=== PATIENT | male | born 1950 | race Caucasian/White ===

== ENCOUNTER 2021-03-04 08:07 | Day surgery (SDC) | payer OTHER, SELFPAY ==
[2021-03-04 08:28] VITALS: BP 138/94; PULSE 93; RESP 18; TEMP 36.6; O2SAT 98
[2021-03-04] MEDS: Tropicam./Phenyleph. (1/2.5%) 5 ML BTL OD ×3 (08:37→08:49)
--- NOTE | 2021-03-04 08:59 | W.ANESPRE ---
General Info Date of Service Date Performed: 03/04/21 Height: 5 ft 10.5 in Weight: 102.3 kg Body Mass Index (BMI): 31.8 Surgical Procedure: Operation Date: 03/04/21 10:40 Proposed Procedures Side Surgeon p Cataract Extraction with IOL Implant Right Matthew Garland MD Meds Allergies and Home Medications Allergies Allergy/AdvReac Type Severity Reaction Status Date / Time morphine Allergy Mild Itching Unverified 03/04/21 08:37 Home Medication Medication Instructions Recorded acetaminophen 325 mg PO Q6H PRN 02/28/21 allopurinol 300 mg PO DAILY 02/28/21 cholecalciferol (vitamin D3) 25 mcg PO DAILY 02/28/21 [Vitamin D3] diltiazem HCl [Diltia XT] 240 mg PO DAILY 02/28/21 furosemide 40 mg PO DAILY 02/28/21 gemfibrozil 600 mg PO BID 02/28/21 losartan 50 mg PO DAILY 02/28/21 triamcinolone acetonide [Kenalog] 1 applic TOPICAL TID 02/28/21 Current Visit Medications: Current Medications Generic Name Dose Route Start Last Admin Trade Name Freq PRN Reason Stop Dose Admin Acetaminophen 1,000 mg 03/04/21 06:00 Acetaminophen 500 Mg Tab PO Q4H PRN PRN Miscellaneous Medication 0 ml 03/04/21 06:00 Prednisolone 1%, Moxifloxacin 0.5%, Nepafenac 0.1% 5ml Btl OD DIRECTED HELGA Miscellaneous Medication 0 ml 03/04/21 06:00 03/04/21 08:49 Tropicam./Phenyleph. (1/2.5%) 5 Ml Btl OD 1 drp DIRECTED HELGA Administration Tetracaine HCl 0 ml 03/04/21 06:00 Tetracaine 0.5% 4 Ml Btl OD DIRECTED HEGLA PFSH Medical History Medical History A-fib Arthritis Basal cell carcinoma Degenerative joint disease of knee, right Diverticulosis Gout HTN (hypertension) Hx of ptosis of eyelid Hypertriglyceridemia Umbilical hernia Surgical History Surgical History H/O colectomy History of eyelid surgery History of hip surgery History of vasectomy Hx of appendectomy Hx of colonoscopy Hx of inguinal hernia repair Hx of total knee replacement Tobacco Smoking/Tobacco Use Status: Former Tobacco Use Alcohol Alcohol Intake: current Alcohol intake frequency: 0-2 drinks per day Substance Use Substance use: Never Substance use type: does not use Vital Signs and Lab Results Vital Signs Most Recent Vital Signs in EMR: Most Recent Vital Signs Temp Pulse Resp BP Pulse Ox 36.6 C 93 H 18 138/94 H 98 03/04/21 08:28 03/04/21 08:28 03/04/21 08:28 03/04/21 08:28 03/04/21 08:28 Lab Results Blood Type / Crossmatch: No Data to Display Complete Blood Count: No Data to Display Complete Metabolic Panel: No Data to Display Liver Function Panel: No Data to Display Coagulation Panel: No Data to Display Cardiac Panel: No Data to Display Arterial Blood Gas: No Data to Display Venous Blood Gas: No Data to Display Pancreas Panel: No Data to Display Thyroid Panel: No Data to Display Infectious Disease: No Data to Display Blood Cultures: No Data to Display Toxicology Panel: No Data to Display Anesthesia Assessment and Plan Anesthesia History Personal History: No History of Anesthesia Complications Family History: No Family History of Anesthesia Complications Exercise Tolerance Exercise Tolerance: Metabolic Equivalents>4 Cardiac & Pulmonary Exam Cardiac Exam: Normal S1/S2 Heart Sounds Pulmonary Exam: Clear Bilateral Breath Sounds Airway Exam Known Difficult Airway: No Mallampati Class: 2 Mouth Opening: Normal (> 3cm) Thyromental Distance: Greater than 3 cm Neck Range of Motion: Full ROM Neck Circumference: Thick Teeth Condition: Normal Dentition ASA Classification ASA Score: ASA 2 Emergency Case?: No NPO Status NPO Status: NPO Clears >2 hours, Solids >8 hours Anesthesia Plan Resuscitation Status: Full Code Anesthesia Technique: MAC Anesthesia Airway Planned: Natural Airway Monitors Used: Standard Monitors Preoperative Comments:: 70 yo for cataract removal. sig PMhx of afib (dilt and abixaban, previous failed cardioversion), hypertension (losartan/furosemide). discussed mko vs no MKO, would like no MKO.
[2021-03-04 09:02] VITALS: BMI 31.8
[2021-03-04] MEDS: Povidone-Iodine Ophth 30 ML BTL (09:53)
[2021-03-04] MEDS: Lidocaine 2% Jelly 6 ML SYR (09:55)
[2021-03-04] MEDS: Lidocaine 1% Pres-Free 5 ML VIAL (09:55)
[2021-03-04] MEDS: Balanced Salt Soln.-PLUS 500 ML BAG (09:56)
[2021-03-04] MEDS: Duovisc Viscoelastic System EACH 1 EACH (09:56)
[2021-03-04] MEDS: Tetracaine 0.5% 4 ML BTL OD (09:56)
[2021-03-04 10:15] VITALS: BP 141/90; PULSE 91; RESP 18; TEMP 36.6; O2SAT 97
--- NOTE | 2021-03-04 10:23 | W.PM.DSUDISC ---
Discharge Plan Disposition Patient Disposition: HOME Condition: Good Discharge Details Attending Provider: Matthew Garland Primary Care Provider: Gerardo Villanueva Home Meds and New Rx's Prescriptions: No Action losartan 50 mg Tablet 50 mg PO DAILY RF: 0 furosemide 40 mg Tablet 40 mg PO DAILY RF: 0 acetaminophen 325 mg Tablet 325 mg PO Q6H PRNRF: 0 diltiazem HCl [Diltia XT] 240 mg Capsule,Ext.Rel 24h Degradable 240 mg PO DAILY RF: 0 gemfibrozil 600 mg Tablet 600 mg PO BID RF: 0 allopurinol 300 mg Tablet 300 mg PO DAILY RF: 0 triamcinolone acetonide [Kenalog] 0.1 % Lotion 1 applic TOPICAL TID RF: 0 cholecalciferol (vitamin D3) [Vitamin D3] 25 mcg (1,000 unit) Tablet 25 mcg PO DAILY RF: 0 Discharge Instructions Stand Alone Forms: Post-op Block Cataract, Post-op Topical Cataract, Press Ganey (DSU) Discharge Orders Discharge Orders: Discharge Order (Routine); Ordered 03/04/21 Ordered By: Matthew Garland DS: Diagnosis Discharge Diagnosis (1) Nuclear sclerotic cataract of right eye: Status: Resolved (2) Posterior subcapsular age-related cataract, right eye: Status: Resolved
--- NOTE | 2021-03-04 10:24 | ROE_ITS ---
Date of service: 03/04/21 Time of Service: 10:25 Operative Note Operative Note DATE OF PROCEDURE: 03/04/21 PRE-OP DIAGNOSIS: Nuclear/posterior subcapsular cataract, right eye POST-OP DIAGNOSIS: same PROCEDURE: Cataract extraction using phacoemulsification with intraocular lens implant, right eye SURGEON: Matthew Garland ANESTHESIA TYPE: Local By Surgeon and MAC Refer to Anesthesia Record ESTIMATED BLOOD LOSS: 0 PATHOLOGY: none sent COMPLICATIONS: None Patient was transported to: same day Patient's condition: stable Implants: Carlos and Carlos Vision / [employer] Tecnis [id number] intraocular lens Indications: Progressive decreased vision due to cataract, right eye Procedure Description: CATARACT SURGERY OPERATIVE REPORT PREOPERATIVE DIAGNOSIS: Nuclear/posterior subcapsular cataract, right eye POSTOPERATIVE DIAGNOSIS: Same OPERATION: Cataract extraction using phacoemulsification with posterior chamber intraocular lens implant, right eye. IOL: IOL Heating Fixture Tender/Model: [employer] / TERI Tecnis [id number] IOL Power: + 20.5 diopters IOL Serial Number: [id number] Optic Diameter: 6.0mm Haptic/Overall Diameter: 13.0mm PHACO INFO: Kaleb [employer] Vision System with OZil and Active Fluidics Cumulative Dispersed Energy (CDE): 12.99 seconds SURGEON: Matthew Garland MD, DEDRA ANESTHESIA: Monitored Anesthesia Care (MAC), with local sub-tenon's anesthetic infiltration COMPLICATIONS: None SPECIMENS: None INDICATIONS FOR PROCEDURE: The patient is a 70-year-old gentleman with history of diminished visual acuity in his right eye secondary to the development of nuclear and posterior subcapsular cataract. He was significantly symptomatic that he desired cataract surgery and attempt to improve and maximize his vision. PROCEDURE: The correct surgical eye was identified and marked as the right eye and the pupil was dilated in the preoperative area using mydriatics and cycloplegics. The dilated pupil size was 7.0 mm. He elected to proceed without oral sedation. The patient was brought to the operating room where cardiopulmonary monitoring was instituted and surgical time-out was performed, confirming the correct operative eye and IOL power. Topical anesthesia was administered and ophthalmic povidone-iodine 5% was instilled into the conjunctival fornices. Lidocaine gel was applied to the cornea and the tarik-ocular area was prepped with Betadine 10% solution and draped in the usual sterile fashion for intraocular surgery, including an aperture drape. A Tegaderm transparent film dressing was cut in half and used to cover the lashes and lid margins. Care was taken to sequester the lashes and lid margins under the Tegaderm dressing. A lid speculum was placed between the lids of the operative eye and the Rebecca-Pawel operating microscope was maneuvered into position. Javid scissors were then used to make a conjunctival buttonhole approximately 6mm posterior to the limbus in the inferonasal quadrant. Blunt dissection was carried out to expose bare sclera, and a blunt-tipped sub-tenon?s anesthesia cannula was introduced and passed posteriorly along the globe where non- preserved plain lidocaine was injected into posterior sub-Tenon?s space. A sideport knife was used to make a paracentesis port inferiortemporally. Intraocular phenylephrine/lidocaine was injected into the anterior chamber. The anterior chamber was then filled with viscoelastic. A 2.4mm keratome knife was used to create a half-thickness groove at the limbus and then to construct a three-plane near-clear corneal tunnel extending 2.0mm into clear cornea in the superiortemporal position. . A flap was raised on the anterior capsule and capsulorhexis forceps were used to complete a continuous curvilinear capsulorhexis of 5.0 mm. Balanced salt solution was then used to perform cortical cleaving hydrodissection and nuclear hydrodelineation until the lens could be freely rotated within the capsular bag. The lens nucleus was then disassembled and removed within the capsular bag and iris plane using phacoemulsification. Residual cortical material was removed using the I/A handpiece. The posterior capsule was carefully polished to remove as much residual lens epithelial cells as safely possible. The capsular bag was then inflated and the anterior chamber deepened with viscoelastic. The lens implant described above was inserted into the capsular bag using the TERI [place] Injector. A Kuglen hook was used to dial the IOL into position. Residual viscoelastic was then removed first from posterior to the IOL, then from the anterior chamber using the I/A handpiece. The lens implant was noted to center nicely within the capsular bag. The incisions were stromally hydrated, and the anterior chamber was reformed using BSS. Then 0.5cc of moxifloxacin 1.0mg/ml were injected into the capsular bag and anterior chamber. The incisions were checked with a Weck spear and found to be secure. Several drops of ophthalmic povidone-iodine 5% were then applied to the eye followed by two drops of Imprimis combination prednisolone/moxifloxacin/nepafenac solution. The drapes were removed and a clear plastic protective eye shield was placed over the eye. The patient was then returned to Same Day Surgery in stable condition.
--- NOTE | 2021-03-04 12:03 | W.ANESPOSTOP ---
Postoperative Evaluation Date, Time and Location Date Performed: 03/04/21 Time Performed: 12:03 Patient Location: Day Surgery Unit Vital Signs Most Recent Imported Vital Signs: Most Recent Vital Signs Temp Pulse Resp BP Pulse Ox 36.6 C 91 H 18 141/90 H 97 03/04/21 10:15 03/04/21 10:15 03/04/21 10:15 03/04/21 10:15 03/04/21 10:15 Pain Score Most Recent Pain Score: Most Recent Pain Score Pain Level 0 03/04/21 10:15 Assessment Mental Status: Awake (Alert & Oriented to Patient Baseline) Airway and Respiratory Function: Patent airway with normal (patient baseline) respiratory exam Cardiovascular Function: Hemodynamically Stable Hydration Status: Adequately Hydrated Nausea & Vomiting: No Nausea or Vomiting Pain: Pt. Denies Any Pain Peripheral Nerve Block: Patient did not receive a nerve block
== END 2021-03-04 10:45 | disposition home or self-care (01) ==
PROVIDERS: PCP Family Medicine; Visit Provider Ophthalmology
PROC: (CPT 66984; principal; 2021-03-04 10:30)
DX: H25.11 Age-related nuclear cataract, right eye (principal); I48.91 Unspecified atrial fibrillation; E78.1 Pure hyperglyceridemia
CPT/HCPCS: 66984; V2632

== ENCOUNTER 2022-11-17 11:39 | Day surgery (SDC) | payer MEDICARE, SELFPAY ==
[2022-11-17] MEDS: Tropicam./Phenyleph. (1/2.5%) 5 ML BTL OS ×3 (12:19→12:32)
[2022-11-17 12:28] VITALS: BP 138/85; PULSE 96; RESP 20; TEMP 36.8; O2SAT 94
--- NOTE | 2022-11-17 12:38 | W.ANESPRE ---
General Info Date of Service Date Performed: 11/17/22 Height: 5 ft 10.5 in Weight: 102.3 kg Body Mass Index (BMI): 31.8 Surgical Procedure: Operation Date: 11/17/22 13:40 Proposed Procedure Side Surgeon p Cataract Extraction with IOL Implant Left Matthew Garland MD Meds Allergies and Home Medications Allergies Allergy/AdvReac Type Severity Reaction Status Date / Time morphine Allergy Mild Itching Unverified 11/16/22 15:42 Home Medication Medication Instructions Recorded acetaminophen 325 mg tablet 325 mg PO Q6H PRN 02/28/21 allopurinol 300 mg tablet 300 mg PO DAILY 02/28/21 cholecalciferol (vitamin D3) 25 25 mcg PO DAILY 02/28/21 mcg (1,000 unit) tablet (Vitamin D3) furosemide 40 mg tablet 40 mg PO DAILY 02/28/21 gemfibrozil 600 mg tablet 600 mg PO BID 02/28/21 losartan 50 mg tablet 50 mg PO DAILY 02/28/21 triamcinolone acetonide 0.1 % 1 applic topical TID 02/28/21 lotion apixaban 5 mg tablet (Eliquis) 1 tab PO BID 11/16/22 metoprolol succinate 200 mg 1 tab PO DAILY 11/17/22 tablet,extended release 24 hr Current Visit Medications: Current Medications Generic Name Dose Route Start Last Admin Trade Name Freq PRN Reason Stop Dose Admin Acetaminophen 1,000 mg 11/17/22 06:00 Acetaminophen 500 Mg Tab PO Q4H PRN PRN Miscellaneous Medication 0 ml 11/17/22 06:00 Prednisolone 1%, Moxifloxacin 0.5%, Nepafenac 0.1% 5ml Btl OS DIRECTED HELGA Miscellaneous Medication 0 ml 11/17/22 06:00 11/17/22 12:32 Tropicam./Phenyleph. (1/2.5%) 5 Ml Btl OS 1 drp DIRECTED HELGA Administration Tetracaine HCl 0 ml 11/17/22 06:00 Tetracaine 0.5% 4 Ml Btl OS DIRECTED HELGA PFSH Active Problems Active Problems: Problem Status Onset Code Posterior subcapsular age-related cataract, right eye H25.041 Nuclear sclerotic cataract of right eye H25.11 Medical History Medical History A-fib Arthritis Basal cell carcinoma Degenerative joint disease of knee, right Diverticulosis Gout HTN (hypertension) Hx of ptosis of eyelid Hypertriglyceridemia Umbilical hernia Surgical History Surgical History (Updated 11/17/22 @ 12:21 by Rupinder Dash RN) H/O colectomy History of cataract surgery History of eyelid surgery History of hip surgery History of vasectomy Hx of appendectomy Hx of colonoscopy Hx of inguinal hernia repair Hx of total knee replacement Tobacco Smoking/Tobacco Use Status: Former Tobacco Use Alcohol Alcohol Intake: current Alcohol intake frequency: 0-2 drinks per day Substance Use Substance use: Never Substance use type: does not use Vital Signs and Lab Results Vital Signs Most Recent Vital Signs in EMR: Most Recent Vital Signs Temp Pulse Resp BP Pulse Ox 36.8 C 96 H 20 138/85 94 11/17/22 12:28 11/17/22 12:28 11/17/22 12:28 11/17/22 12:28 11/17/22 12:28 Lab Results Blood Type / Crossmatch: No Data to Display Complete Blood Count: No Data to Display Complete Metabolic Panel: No Data to Display Liver Function Panel: No Data to Display Coagulation Panel: No Data to Display Cardiac Panel: No Data to Display Arterial Blood Gas: No Data to Display Venous Blood Gas: No Data to Display Pancreas Panel: No Data to Display Thyroid Panel: No Data to Display Infectious Disease: No Data to Display Blood Cultures: No Data to Display Toxicology Panel: No Data to Display Anesthesia Assessment and Plan Anesthesia History Personal History: No History of Anesthesia Complications Family History: No Family History of Anesthesia Complications Exercise Tolerance Exercise Tolerance: Metabolic Equivalents>4 Pertinent Negatives Pertinent Negatives: No Symptoms of GERD Cardiac & Pulmonary Exam Cardiac Exam: Normal S1/S2 Heart Sounds Pulmonary Exam: Clear Bilateral Breath Sounds Implantable Cardiac Device Does patient have a Pacemaker or an ICD?: No Airway Exam Known Difficult Airway: No Mallampati Class: 2 Mouth Opening: Normal (> 3cm) Thyromental Distance: Greater than 3 cm Neck Range of Motion: Full ROM Neck Circumference: Thick Teeth Condition: Normal Dentition ASA Classification ASA Score: ASA 2 Emergency Case?: No NPO Status NPO Status: NPO Clears >2 hours, Solids >8 hours Anesthesia Plan Resuscitation Status: Full Code Anesthesia Technique: MAC Anesthesia Airway Planned: Natural Airway Monitors Used: Standard Monitors Preoperative Comments:: No MKO per pt
[2022-11-17 12:39] VITALS: BMI 31.8
[2022-11-17] MEDS: Tetracaine 0.5% 4 ML BTL OS (13:15)
[2022-11-17] MEDS: Lidocaine 2% Jelly 6 ML SYR (13:20)
[2022-11-17] MEDS: Duovisc Viscoelastic System EACH 1 EACH (13:20)
[2022-11-17] MEDS: Balanced Salt Soln.-PLUS 500 ML BAG (13:20)
[2022-11-17] MEDS: Lidocaine 1% Pres-Free 5 ML VIAL (13:22)
[2022-11-17] MEDS: Povidone-Iodine Ophth 30 ML BTL (13:22)
[2022-11-17 13:38] VITALS: BP 128/85; PULSE 87; RESP 16; TEMP 37; O2SAT 94
--- NOTE | 2022-11-17 13:40 | W.PM.DSUDISC ---
Date of service: 11/17/22 Time of Service: 13:40 Discharge Plan Disposition Patient Disposition: Home Discharge Details Attending Provider: Matthew Garland Primary Care Provider: Gerardo Villanueva Home Meds and New Rx's Prescriptions: No Action Eliquis 5 mg tablet 1 tab PO BID Label Comments: TAKE ONE TABLET BY MOUTH TWICE A DAY metoprolol succinate 200 mg tablet extended release 24 hr 1 tab PO DAILY losartan 50 mg Tablet 50 mg PO DAILY furosemide 40 mg Tablet 40 mg PO DAILY acetaminophen 325 mg Tablet 325 mg PO Q6H PRN gemfibrozil 600 mg Tablet 600 mg PO BID allopurinol 300 mg Tablet 300 mg PO DAILY triamcinolone acetonide [Kenalog] 0.1 % Lotion 1 applic TOPICAL TID cholecalciferol (vitamin D3) [Vitamin D3] 25 mcg (1,000 unit) Tablet 25 mcg PO DAILY Discharge Instructions Stand Alone Forms: Post-op Topical Cataract, Ja Ganey (DSU) Discharge Orders Discharge Orders: Discharge Order (Routine); Ordered 11/17/22 Ordered By: Matthew Garland DS: Diagnosis Discharge Diagnosis (1) Nuclear sclerotic cataract of left eye: Status: Resolved
--- NOTE | 2022-11-17 13:41 | ROE_ITS ---
Date of service: 11/17/22 Time of Service: 13:41 Operative Note Operative Note DATE OF PROCEDURE: 11/17/22 PRE-OP DIAGNOSIS: Nuclear cataract, left eye POST-OP DIAGNOSIS: same PROCEDURE: Cataract extraction using phacoemulsification with intraocular lens implant, left eye SURGEON: Matthew Garland ANESTHESIA TYPE: Local By Surgeon and MAC Refer to Anesthesia Record PATHOLOGY: none sent COMPLICATIONS: None Patient was transported to: same day Patient's condition: stable Implants: Carlos and Carlos Tecnis Eyhance [id number] Indications: Progressive decreased vision due to cataract, left eye Procedure Description: CATARACT SURGERY OPERATIVE REPORT PREOPERATIVE DIAGNOSIS: 1. Nuclear cataract, left eye POSTOPERATIVE DIAGNOSIS: Same OPERATION: 1. Cataract extraction using phacoemulsification with posterior chamber intraocular lens implant, left eye. IOL: IOL Aquatics Director/Model: Carlos & Carlos Tecnis Eyhance [id number] IOL Power: + 21.5 diopters IOL Serial Number: [id number] Optic Diameter: 6.0 mm Haptic/Overall Diameter: 13.0 mm PHACO INFO: [employer] Vision System with OZil and Active Fluidics Cumulative Dispersed Energy (CDE): 9.10 seconds SURGEON: Matthew Garland MD, DEDRA ANESTHESIA: Monitored A [facility] ([facility] [place]), with local sub-tenon's anesthetic infiltration COMPLICATIONS: None SPECIMENS: None INDICATIONS FOR PROCEDURE: Patient is a 71-year-old gentleman with history of bilateral cataracts. He has previously undergone cataract surgery in the right eye 2 years ago. He has now developed a symptomatic nuclear cataract in his left eye and desires cataract surgery there and attempt to improve and maximize his vision. PROCEDURE: The correct surgical eye was identified and marked as the left eye and the pupil was dilated in the preoperative area using mydriatics and cycloplegics. The dilated pupil size was 7.0 mm. The patient elected to proceed without oral sedation. The patient was brought to the operating room where cardiopulmonary monitoring was instituted and surgical time-out was performed, confirming the correct operative eye and IOL power. Topical anesthesia was administered and ophthalmic povidone-iodine 5% was instilled into the conjunctival fornices. Lidocaine gel was applied to the cornea and the tarik-ocular area was prepped with Betadine 10% solution and draped in the usual sterile fashion for intraocular surgery, including an aperture drape. A Tegaderm transparent film dressing was cut in half and used to cover the lashes and lid margins. Care was taken to sequester the lashes and lid margins under the Tegaderm dressing. A lid speculum was placed between the lids of the operative eye and the Kaleb [employer] operating microscope was maneuvered into position. Javid scissors were then used to make a conjunctival buttonhole approximately 6mm posterior to the limbus in the inferonasal quadrant. Blunt dissection was carried out to expose bare sclera, and a blunt-tipped sub-tenon?s anesthesia cannula was introduced and passed posteriorly along the globe where non- preserved plain lidocaine was injected into posterior sub-Tenon?s space. A sideport knife was used to make a paracentesis port superiorly/superiortempora lly. Intraocular phenylephrine/lidocaine was injected int the anterior chamber.. The anterior chamber was filled with viscoelastic. A keratome knife was used to construct a 2-plane near-clear corneal tunnel extending 2.0mm into clear cornea temporally. A flap was raised on the anterior capsule and capsulorhexis forceps were used to complete a continuous curvilinear capsulorhexis of 5.0 mm. Balanced salt solution was then used to perform cortical cleaving hydrodissection and nuclear hydrodelineation until the lens could be freely rotated within the capsular bag. The lens nucleus was then disassembled and removed within the capsular bag and iris plane using phacoemulsification. Residual cortical material was removed using the 45-degree angled silicone I/A tip with 0.3mm port. The posterior capsule was carefully polished to remove as much residual lens epithelial cells as safely possible. The capsular bag was then inflated and the anterior chamber deepened with viscoelastic. The lens implant described above was inserted into the capsular bag using the Carlos and Carlos Simplicity pre-loaded injector. . A Kuglen hook was used to dial the IOL into position. Residual viscoelastic was then removed first from posterior to the IOL, then from the anterior chamber using the I/A handpiece. The lens implant was noted to center nicely within the capsular bag. The incisions were stromally hydrated, and the anterior chamber was reformed using BSS. Then 0.5cc of moxifloxacin 1.0mg/ml were injected into the capsular bag and anterior chamber. The incisions were checked with a Weck spear and found to be secure. Several drops of ophthalmic povidone-iodine 5% were then applied to the eye followed by two drops of Imprimis combination prednisolone/moxifloxacin/nepafenac solution. The drapes were removed and a clear plastic protective eye shield was placed over the eye. The patient was then returned to Same Day Surgery in stable condition.
--- NOTE | 2022-11-17 14:12 | W.ANESPOSTOP ---
Postoperative Evaluation Date, Time and Location Date Performed: 11/17/22 Time Performed: 13:45 Patient Location: Day Surgery Unit Vital Signs Most Recent Imported Vital Signs: Most Recent Vital Signs Temp Pulse Resp BP Pulse Ox 37 C 87 16 128/85 94 11/17/22 13:38 11/17/22 13:38 11/17/22 13:38 11/17/22 13:38 11/17/22 13:38 Pain Score Most Recent Pain Score: Most Recent Pain Score Pain Level 0 11/17/22 13:38 Assessment Mental Status: Awake (Alert & Oriented to Patient Baseline) Airway and Respiratory Function: Patent airway with normal (patient baseline) respiratory exam Cardiovascular Function: Hemodynamically Stable Hydration Status: Adequately Hydrated Nausea & Vomiting: No Nausea or Vomiting Pain: Pt. Denies Any Pain Peripheral Nerve Block: Patient did not receive a nerve block
== END 2022-11-17 14:10 | disposition home or self-care (01) ==
PROVIDERS: PCP Family Medicine; Visit Provider Ophthalmology
PROC: (CPT 66984; principal; 2022-11-17 13:30)
DX: H25.12 Age-related nuclear cataract, left eye (principal)
CPT/HCPCS: 66984; V2632